=== PATIENT | female | born 1990 | race Caucasian/White ===

== ENCOUNTER 2016-09-10 15:47 | Emergency (ER) | payer BC ==
[~2016-09-10] VITALS: Ht 175.3 cm; Wt 55.2 kg
[~2016-09-10 15:47] MED LIST: ATARAX,VISTARIL25 MG PO; IBUPROFEN800 MG PO; NOHOMEMEDS; PEPCID40 MG PO; PRENATAL TABLE1 EAC3 PO; VICODIN 5-3001 EACH PO
[2016-09-10 16:27] LABS: HEMATOCRIT 40.8 % (36.0-46.0); MCH 30.5 PG (29.0-34.0); MCHC 32.8 G/DL (30.0-36.0); MCV 92.7 FL (83-99); MEAN PLAT.VOLUME 9.7 uM^3 (9.5-12.4); PLATELET COUNT 218 K/uL (156-360); RBC DIS.WIDTH-CV 13.3 % (11.8-14.6); RBC DIS.WIDTH-SD 45.4 % (39-53); WHITE BLOOD COUNT 11.4 K/uL (4.1-10.2)
[2016-09-10 16:35] LABS: CHLORIDE 104 mEq/L (99-109); POTASSIUM 3.9 mEq/L (3.7-5.4); SODIUM 140 mEq/L (136-147)
[2016-09-10 16:37] LABS: GLUCOSE 98 mg/dL (70-99)
[2016-09-10 16:38] LABS: ANION GAP 8 MEQ/L (2-14)
[2016-09-10 16:39] LABS: TOTAL BILIRUBIN 0.6 mg/dL (0.0-1.0)
[2016-09-10 16:40] LABS: ALKALINE PHOSPHATASE 47 IU/L (3-129)
[2016-09-10 16:41] LABS: GFR ESTIMATE (CALCULATED) > 59 mL/min/
[2016-09-10 16:42] LABS: UREA NITROGEN (BUN) 11 mg/dL (9-23)
[2016-09-10 16:52] LABS: QUANTITATIVE HCG < 4.0 MIU/ML
[2016-09-10 19:50] LABS: ADD MIUA? YES; BILIRUBIN NEGATIVE; BLOOD NEGATIVE; COLOR YELLOW ((YELLOW)); GLUCOSE (STRIP) NEGATIVE; KETONES 5; LEUKOCYTES LARGE; NITRITE NEGATIVE; PROTEIN (STRIP) 30; UROBILINOGEN 0.2 MG/DL (0.2-1.0)
[2016-09-10 20:28] LABS: RED BLOOD CELLS 0-5 /HPF (0-5); WHITE BLOOD CELLS 30-40 /HPF (0-5)
[2016-09-10 20:29] LABS: BACTERIA 1+ /HPF; EPITHELIAL CELLS 2+ /HPF; MUCUS NONE SEEN /LPF; UCUL ADDED? NO
[2016-09-10 20:53] VITALS: BP 121/67
[2016-09-10] MEDS ORDERED: BACTRIM,SEPT1 TABLET PO (20:53)
== END 2016-09-10 21:04 | disposition home or self-care (01) ==
LOC: EME 15:47
PROVIDERS: Nurse Practitioner Family
DX: N39.0 Urinary tract infection, site not specified (principal)
CPT/HCPCS: 74020; 74176; 80053; 81003; 84702; 85027; 99281; 99284

== ENCOUNTER 2017-03-06 22:03 | Emergency (ER) | payer OTHER ==
[~2017-03-06] VITALS: Ht 175.3 cm; Wt 53.9 kg
[~2017-03-06 22:03] MED LIST changes: +BACTRIM,SEPT1 TABLET PO
[2017-03-07 00:06] VITALS: BP 113/57
== END 2017-03-07 00:07 | disposition home or self-care (01) ==
LOC: EME 22:03
DX: S20.212A Contusion of left front wall of thorax, initial encounter (principal); S40.022A Contusion of left upper arm, initial encounter; S40.021A Contusion of right upper arm, initial encounter; S40.012A Contusion of left shoulder, initial encounter; S40.812A Abrasion of left upper arm, initial encounter; S40.212A Abrasion of left shoulder, initial encounter; Y04.2XXA Assault by strike against or bumped into by another person, initial encounter; F17.200 Nicotine dependence, unspecified, uncomplicated
CPT/HCPCS: 71020; 73030; 99281; 99284

== ENCOUNTER 2017-10-13 05:18 | Emergency (ER) | payer SELFPAY ==
[~2017-10-13] VITALS: Ht 170.2 cm; Wt 57.0 kg
[2017-10-13] MEDS ORDERED: TYLENOL WITH C1 EACH PO (07:40)
[2017-10-13 09:59] VITALS: BP 107/89
== END 2017-10-13 10:00 | disposition home or self-care (01) ==
LOC: EME 05:18
DX: S02.32XA Fracture of orbital floor, left side, initial encounter for closed fracture (principal); S02.40DA Maxillary fracture, left side, initial encounter for closed fracture; W18.30XA Fall on same level, unspecified, initial encounter; F17.200 Nicotine dependence, unspecified, uncomplicated
CPT/HCPCS: 70450; 70486; 99281; 99285; J2405; J7030